=== PATIENT | female | born 1935 | race Caucasian/White ===

== ENCOUNTER 2020-08-20 12:34 | Inpatient (IN) ==
[2020-08-20 13:18] LABS: ABS Basophils 0.1 10^3/ul (0-0.2); ABS Eosinophils 0.3 10^3/ul (0-0.6); ABS Lymphocytes 1.1 10^3/ul (1.0-4.8); ABS Monocytes 0.9 10^3/ul (0-0.8); Eosinophil % 3.8 %; Hematocrit 39 % (35-47); Hemoglobin 12.7 g/dL (12.0-16.0); Lymphocyte % 14.9 %; Mean Corpuscular HGB Conc 33 g/dL (31-36); Mean Corpuscular Hemoglobin 30 pg (27-31); Mean Corpuscular Volume 90 fL (80-97); Mean Platelet Volume 8.6 fL (7.4-10.4); Platelet Count 365 10^3/uL (150-450); Red Blood Count 4.31 10^6 /uL (3.70-4.87); Red Cell Distribution Width 17 % (10-15); White Blood Count 7.3 10^3/uL (3.5-10.8)
[2020-08-20 13:25] LABS: INR 1.42 (0.82-1.09)
[2020-08-20 13:37] LABS: ALT 17 U/L (7-52); AST 26 U/L (13-39); Albumin 3.2 g/dL (3.2-5.2); Alkaline Phosphatase 409 U/L (34-104); Anion Gap 10 mmol/L (2-11); BUN/Creatinine Ratio 22.4 (8-20); Blood Urea Nitrogen 66 mg/dL (6-24); CO2 Carbon Dioxide 27 mmol/L (22-32); Calcium 8.3 mg/dL (8.6-10.3); Chloride 105 mmol/L (101-111); EGFR African American 18.3 (>60); EGFR Non-African American 15.1 (>60); Globulin 3.1 g/dL (2-4); Potassium 3.1 mmol/L (3.5-5.0); Sodium 142 mmol/L (135-145); Total Protein 6.3 g/dL (6.4-8.9)
[2020-08-20 13:39] LABS: Glucose 48 mg/dL (70-100)
[2020-08-20 13:40] LABS: Troponin I 0.05 ng/mL (<0.03)
[2020-08-20 16:24] LABS: Troponin I 0.05 ng/mL (<0.03)
[2020-08-20] MEDS ORDERED: Potassium Chloride LIQUID 20 MEQ/15 ML LIQUID PO ONE (17:04)
[2020-08-20] MEDS ORDERED: Furosemide 40 mg/4 ml IV VIAL IV ONE (17:22)
[2020-08-20 17:44] LABS: Glucose 41 mg/dL (70-100)
[2020-08-20 17:46] LABS: Magnesium 1.5 mg/dL (1.9-2.7)
[2020-08-20] MEDS ORDERED: Magnesium Sulfate IV 3 GM in NS 0.9% 100 ml BAG 100 ML IVPB ONE (17:49)
[2020-08-20] MEDS ORDERED: Dextrose 50% Syringe 50 ml 25 GM/50 ML SYRINGE IV PUSH PRN (18:07)
[2020-08-20 19:12] LABS: Troponin I 0.05 ng/mL (<0.03)
[2020-08-20 21:01] LABS: Potassium 3.2 mmol/L (3.5-5.0)
[2020-08-20] MEDS: Heparin 5000 UNITS/ML 1 mL VIAL SUBCUT SCH (21:35)
[2020-08-21] MEDS ORDERED: Dextrose 50% Syringe 50 ml 25 GM/50 ML SYRINGE IV PUSH PRN (00:10)
[2020-08-21] MEDS: KCL 10 MEQ/50 ML IVPREMIX 10 MEQ/50 ML BAG IV SCH ×2 (01:14→03:59)
[2020-08-21] MEDS ORDERED: KCL 10 MEQ/50 ML IVPREMIX 10 MEQ/50 ML BAG IV SCH (03:00)
[2020-08-21] MEDS: Heparin 5000 UNITS/ML 1 mL VIAL SUBCUT SCH ×3 (05:50→20:46)
[2020-08-21] MEDS: Furosemide 40 mg/4 ml IV VIAL IV SCH ×2 (05:50→07:59)
[2020-08-21 07:41] LABS: ABS Eosinophils 0.4 10^3/ul (0-0.6); ABS Monocytes 0.6 10^3/ul (0-0.8); ABS Neutrophils 5.5 10^3/ul (1.5-7.7); Eosinophil % 4.8 %; Hematocrit 42 % (35-47); Hemoglobin 13.4 g/dL (12.0-16.0); Lymphocyte % 13.5 %; Mean Corpuscular HGB Conc 32 g/dL (31-36); Mean Corpuscular Hemoglobin 29 pg (27-31); Mean Corpuscular Volume 92 fL (80-97); Mean Platelet Volume 8.9 fL (7.4-10.4); Nucleated Red Blood Cells % 0.1; Platelet Count 370 10^3/uL (150-450); Red Blood Count 4.54 10^6 /uL (3.70-4.87); Red Cell Distribution Width 18 % (10-15); White Blood Count 7.5 10^3/uL (3.5-10.8)
[2020-08-21 07:51] LABS: Albumin 3.3 g/dL (3.2-5.2); BUN/Creatinine Ratio 22.6 (8-20); Calcium 8.4 mg/dL (8.6-10.3); EGFR African American 18.8 (>60); EGFR Non-African American 15.6 (>60); Globulin 3.4 g/dL (2-4); Magnesium 2.2 mg/dL (1.9-2.7); Potassium 4.1 mmol/L (3.5-5.0); Total Bilirubin 1.3 mg/dL (0.2-1.0); Total Protein 6.7 g/dL (6.4-8.9)
[2020-08-21] MEDS: Aspirin EC 81 mg TAB.EC (enteric coated) PO SCH (08:17)
[2020-08-21] MEDS: Nystatin TOP POWDER 15 GM BTL TOPICAL SCH ×3 (09:30→20:59)
[2020-08-21] MEDS ORDERED: Bumetanide IV 0.25 MG/ML 4 ml VIAL (1 mg) SLOW PUSH ONE (17:37)
[2020-08-21] MEDS ORDERED: Bumetanide IV 10 MG in Premix IV 0 ML IV ONE (20:00)
[2020-08-21] MEDS: Calcium Polycarbophil 625mg TB PO SCH (20:46)
[2020-08-21] MEDS: Insulin GLARGINE 100 un/ml 10 ml VIAL SUBCUT SCH (20:47)
[2020-08-21] MEDS ORDERED: Furosemide 40 mg/4 ml IV VIAL IV SCH (21:00)
[2020-08-22 05:04] LABS: Calcium 8.7 mg/dL (8.6-10.3)
[2020-08-22 05:07] LABS: Potassium 4.2 mmol/L (3.5-5.0)
[2020-08-22 05:10] LABS: BUN/Creatinine Ratio 24.7 (8-20); EGFR African American 19.5 (>60); EGFR Non-African American 16.1 (>60)
[2020-08-22] MEDS: Heparin 5000 UNITS/ML 1 mL VIAL SUBCUT SCH ×3 (06:08→22:24)
[2020-08-22] MEDS: Nystatin TOP POWDER 15 GM BTL TOPICAL SCH ×3 (08:00→22:24)
[2020-08-22] MEDS: Calcium Polycarbophil 625mg TB PO SCH ×2 (09:52→22:24)
[2020-08-22] MEDS: Aspirin EC 81 mg TAB.EC (enteric coated) PO SCH (09:55)
[2020-08-22] MEDS: Bumetanide IV 10 MG in Premix IV 0 ML IV SCH ×2 (11:34→23:55)
[2020-08-22 21:24] LABS: Magnesium 2.1 mg/dL (1.9-2.7)
[2020-08-22] MEDS: Insulin GLARGINE 100 un/ml 10 ml VIAL SUBCUT SCH (22:24)
[2020-08-22 23:12] LABS: Calcium 8.1 mg/dL (8.6-10.3)
[2020-08-22 23:17] LABS: BUN/Creatinine Ratio 26.4 (8-20); EGFR African American 22.1 (>60); EGFR Non-African American 18.3 (>60)
[2020-08-22 23:30] LABS: Potassium 3.6 mmol/L (3.5-5.0)
[2020-08-23 06:59] LABS: Calcium 8.8 mg/dL (8.6-10.3); Potassium 3.5 mmol/L (3.5-5.0)
[2020-08-23 07:05] LABS: BUN/Creatinine Ratio 24.8 (8-20); EGFR African American 19.9 (>60); EGFR Non-African American 16.4 (>60)
[2020-08-23] MEDS: Heparin 5000 UNITS/ML 1 mL VIAL SUBCUT SCH ×3 (07:35→22:01)
[2020-08-23] MEDS ORDERED: KCL 20 MEQ/100 ML IVPREMIX 20 MEQ/100 ML BAG IV ONE (07:40)
[2020-08-23] MEDS: Bumetanide IV 10 MG in Premix IV 0 ML IV SCH ×3 (08:17→22:00)
[2020-08-23] MEDS ORDERED: Potassium Chlor 20 meq TAB.ER PO ONE (08:22)
[2020-08-23] MEDS: Calcium Polycarbophil 625mg TB PO SCH ×2 (08:56→22:00)
[2020-08-23] MEDS: Aspirin EC 81 mg TAB.EC (enteric coated) PO SCH (08:57)
[2020-08-23] MEDS: Nystatin TOP POWDER 15 GM BTL TOPICAL SCH ×3 (08:57→23:05)
[2020-08-23] MEDS ORDERED: Potassium Chloride LIQUID 20 MEQ/15 ML LIQUID PO ONE (09:00)
[2020-08-23] MEDS: Insulin GLARGINE 100 un/ml 10 ml VIAL SUBCUT SCH (22:01)
[2020-08-24] MEDS: Heparin 5000 UNITS/ML 1 mL VIAL SUBCUT SCH ×3 (04:59→21:20)
[2020-08-24] MEDS: Bumetanide IV 10 MG in Premix IV 0 ML IV SCH ×2 (04:59→12:21)
[2020-08-24 07:39] LABS: BUN/Creatinine Ratio 26.1 (8-20); Calcium 8.7 mg/dL (8.6-10.3); EGFR African American 20.4 (>60); EGFR Non-African American 16.9 (>60); Magnesium 1.7 mg/dL (1.9-2.7); Potassium 4.1 mmol/L (3.5-5.0)
[2020-08-24] MEDS ORDERED: Magnesium Sulfate IV 3 GM in NS 0.9% 100 ml BAG 100 ML IVPB ONE (08:30)
[2020-08-24] MEDS: Calcium Polycarbophil 625mg TB PO SCH ×2 (09:02→21:20)
[2020-08-24] MEDS: Aspirin EC 81 mg TAB.EC (enteric coated) PO SCH (09:03)
[2020-08-24] MEDS: Nystatin TOP POWDER 15 GM BTL TOPICAL SCH ×3 (09:04→21:20)
[2020-08-24] MEDS ORDERED: Insulin GLARGINE 100 un/ml 10 ml VIAL SUBCUT SCH (21:00)
[2020-08-25] MEDS: Bumetanide IV 10 MG in Premix IV 0 ML IV SCH ×3 (00:28→18:35)
[2020-08-25] MEDS ORDERED: Hemorrhoidal OINT 1 TUBE PR PRN (01:32)
[2020-08-25] MEDS: Heparin 5000 UNITS/ML 1 mL VIAL SUBCUT SCH ×3 (06:52→21:28)
[2020-08-25] MEDS: Aspirin EC 81 mg TAB.EC (enteric coated) PO SCH (09:55)
[2020-08-25] MEDS: Calcium Polycarbophil 625mg TB PO SCH ×2 (09:56→21:28)
[2020-08-25] MEDS: Nystatin TOP POWDER 15 GM BTL TOPICAL SCH ×3 (09:57→21:31)
[2020-08-25 15:02] LABS: BUN/Creatinine Ratio 27.4 (8-20); Calcium 8.7 mg/dL (8.6-10.3); EGFR African American 20.8 (>60); EGFR Non-African American 17.2 (>60); Potassium 3.6 mmol/L (3.5-5.0)
[2020-08-25] MEDS ORDERED: Insulin GLARGINE 100 un/ml 10 ml VIAL SUBCUT SCH (21:00)
[2020-08-26] MEDS: Bumetanide IV 10 MG in Premix IV 0 ML IV SCH ×2 (02:57→15:18)
[2020-08-26 05:32] LABS: BUN/Creatinine Ratio 28.2 (8-20); Calcium 9.2 mg/dL (8.6-10.3); EGFR African American 20.6 (>60); Magnesium 1.9 mg/dL (1.9-2.7); Potassium 3.8 mmol/L (3.5-5.0)
[2020-08-26] MEDS: Heparin 5000 UNITS/ML 1 mL VIAL SUBCUT SCH ×3 (06:31→21:44)
[2020-08-26] MEDS: Calcium Polycarbophil 625mg TB PO SCH ×2 (08:59→20:12)
[2020-08-26] MEDS: Aspirin EC 81 mg TAB.EC (enteric coated) PO SCH (09:01)
[2020-08-26] MEDS: Nystatin TOP POWDER 15 GM BTL TOPICAL SCH ×3 (09:05→20:11)
[2020-08-26 11:14] LABS: Albumin/Globulin Ratio 0.8 (1-3); Globulin 3.6 g/dL (2-4); Indirect Bilirubin 0.9 mg/dL (0.3-1.0); Total Bilirubin 1.3 mg/dL (0.2-1.0); Total Protein 6.6 g/dL (6.4-8.9)
[2020-08-26] MEDS: Insulin GLARGINE 100 un/ml 10 ml VIAL SUBCUT SCH (20:06)
[2020-08-27] MEDS: Bumetanide IV 10 MG in Premix IV 0 ML IV SCH ×2 (00:01→10:38)
[2020-08-27 05:10] LABS: BUN/Creatinine Ratio 28.8 (8-20); Calcium 9.3 mg/dL (8.6-10.3); EGFR African American 20.7 (>60); EGFR Non-African American 17.1 (>60); Magnesium 1.7 mg/dL (1.9-2.7); Potassium 4.3 mmol/L (3.5-5.0)
[2020-08-27] MEDS: Heparin 5000 UNITS/ML 1 mL VIAL SUBCUT SCH ×3 (05:35→20:35)
[2020-08-27] MEDS ORDERED: Magnesium Sulfate 2 gm BAG 2 GM/50 ML BAG IVPB ONE (06:59)
[2020-08-27] MEDS: Aspirin EC 81 mg TAB.EC (enteric coated) PO SCH (08:14)
[2020-08-27] MEDS: Calcium Polycarbophil 625mg TB PO SCH ×2 (08:15→19:55)
[2020-08-27] MEDS: Nystatin TOP POWDER 15 GM BTL TOPICAL SCH ×3 (08:31→19:56)
[2020-08-27] MEDS: Insulin GLARGINE 100 un/ml 10 ml VIAL SUBCUT SCH (20:34)
[2020-08-28] MEDS: Bumetanide IV 10 MG in Premix IV 0 ML IV SCH ×3 (00:04→20:48)
[2020-08-28] MEDS: Heparin 5000 UNITS/ML 1 mL VIAL SUBCUT SCH ×3 (05:30→20:17)
[2020-08-28 06:17] LABS: BUN/Creatinine Ratio 27.5 (8-20); Calcium 9.3 mg/dL (8.6-10.3); EGFR African American 20.3 (>60); EGFR Non-African American 16.8 (>60); Magnesium 2.2 mg/dL (1.9-2.7); Potassium 4.1 mmol/L (3.5-5.0)
[2020-08-28] MEDS: Aspirin EC 81 mg TAB.EC (enteric coated) PO SCH (09:16)
[2020-08-28] MEDS: Calcium Polycarbophil 625mg TB PO SCH ×2 (09:17→20:17)
[2020-08-28] MEDS: Nystatin TOP POWDER 15 GM BTL TOPICAL SCH ×3 (09:22→20:17)
[2020-08-28] MEDS: Insulin GLARGINE 100 un/ml 10 ml VIAL SUBCUT SCH (20:17)
[2020-08-29] MEDS: Heparin 5000 UNITS/ML 1 mL VIAL SUBCUT SCH ×3 (05:45→21:17)
[2020-08-29 06:24] LABS: BUN/Creatinine Ratio 28.8 (8-20); Calcium 9.6 mg/dL (8.6-10.3); EGFR African American 19.3 (>60); Potassium 4.4 mmol/L (3.5-5.0)
[2020-08-29] MEDS: Bumetanide IV 10 MG in Premix IV 0 ML IV SCH (09:54)
[2020-08-29] MEDS: Calcium Polycarbophil 625mg TB PO SCH ×2 (09:56→21:17)
[2020-08-29] MEDS: Aspirin EC 81 mg TAB.EC (enteric coated) PO SCH (09:56)
[2020-08-29] MEDS: Nystatin TOP POWDER 15 GM BTL TOPICAL SCH ×3 (10:03→21:17)
[2020-08-29] MEDS ORDERED: Magnesium Hydroxide LIQ 30 ML UDC PO PRN (14:11)
[2020-08-29] MEDS: Insulin GLARGINE 100 un/ml 10 ml VIAL SUBCUT SCH (21:18)
[2020-08-30 05:02] LABS: BUN/Creatinine Ratio 31.7 (8-20); Calcium 9.4 mg/dL (8.6-10.3); EGFR African American 18.8 (>60); EGFR Non-African American 15.6 (>60); Magnesium 1.9 mg/dL (1.9-2.7); Potassium 4.1 mmol/L (3.5-5.0)
[2020-08-30] MEDS: Heparin 5000 UNITS/ML 1 mL VIAL SUBCUT SCH ×3 (05:58→21:25)
[2020-08-30] MEDS ORDERED: Magnesium Sulfate 2 gm BAG 2 GM/50 ML BAG IVPB ONE (06:29)
[2020-08-30] MEDS: Calcium Polycarbophil 625mg TB PO SCH ×2 (10:01→21:26)
[2020-08-30] MEDS: Aspirin EC 81 mg TAB.EC (enteric coated) PO SCH (10:02)
[2020-08-30] MEDS: Nystatin TOP POWDER 15 GM BTL TOPICAL SCH ×3 (10:09→21:33)
[2020-08-30] MEDS: Bumetanide IV 0.25 MG/ML 4 ml VIAL (1 mg) SLOW PUSH SCH (21:24)
[2020-08-30] MEDS: Insulin GLARGINE 100 un/ml 10 ml VIAL SUBCUT SCH (21:26)
[2020-08-31 06:32] LABS: BUN/Creatinine Ratio 30.3 (8-20); Calcium 9.6 mg/dL (8.6-10.3); EGFR African American 16.8 (>60); EGFR Non-African American 13.9 (>60); Potassium 4.6 mmol/L (3.5-5.0)
[2020-08-31] MEDS: Heparin 5000 UNITS/ML 1 mL VIAL SUBCUT SCH ×2 (07:22→14:20)
[2020-08-31] MEDS: Bumetanide IV 0.25 MG/ML 4 ml VIAL (1 mg) SLOW PUSH SCH (08:36)
[2020-08-31] MEDS: Calcium Polycarbophil 625mg TB PO SCH (08:37)
[2020-08-31] MEDS: Aspirin EC 81 mg TAB.EC (enteric coated) PO SCH (08:38)
[2020-08-31] MEDS: Nystatin TOP POWDER 15 GM BTL TOPICAL SCH ×2 (08:39→14:20)
[2020-08-31 16:17] VITALS: BP 105/46
[2020-09-03 13:03] LABS: TB1 Ag minus Nil Result -0.01 IU/mL
[2020-09-03 13:04] LABS: QuantiferonTb Gold Plus Result Negative (Negative)
== END 2020-08-31 16:30 | disposition home or self-care (01) | DRG 291 ==
LOC: ED 12:34 → MEDTELE 16:55
PROVIDERS: ADMIT Internal Medicine; ATTEND Internal Medicine

== ENCOUNTER 2022-01-03 20:35 | Inpatient (IN) ==
[2022-01-03 21:30] LABS: ABS Basophils 0.1 10^3/ul (0-0.2); ABS Lymphocytes 0.3 10^3/ul (1.0-4.8); ABS Monocytes 0.9 10^3/ul (0-0.8); ABS Neutrophils 19.3 10^3/ul (1.5-7.7); Hematocrit 38 % (35-47); Hemoglobin 12.4 g/dL (12.0-16.0); Lymphocyte % 1.4 %; Mean Corpuscular HGB Conc 33 g/dL (31-36); Mean Corpuscular Hemoglobin 33 pg (27-31); Mean Corpuscular Volume 100 fL (80-97); Mean Platelet Volume 8.2 fL (7.4-10.4); Nucleated Red Blood Cells % 0.1; Platelet Count 279 10^3/uL (150-450); Red Cell Distribution Width 18 % (10-15); White Blood Count 20.5 10^3/uL (3.5-10.8)
[2022-01-03 21:56] LABS: Albumin 3.3 g/dL (3.2-5.2); Calcium 9.1 mg/dL (8.6-10.3); Globulin 3.2 g/dL (2-4); Total Bilirubin 1.7 mg/dL (0.2-1.0); Total Protein 6.5 g/dL (6.4-8.9)
[2022-01-03 22:00] LABS: Potassium 3.6 mmol/L (3.5-5.0)
[2022-01-03 22:41] LABS: INR 1.33 (0.89-1.11)
[2022-01-03 22:58] LABS: High Sensitivity Troponin 1 Hr 181 pg/mL (<15)
[2022-01-04] MEDS ORDERED: Furosemide 20 mg/2 ml IV VIAL IV SLOW PU ONE
[2022-01-04] MEDS ORDERED: Nitro 2% OINT (Nitroglycerin) 1 INCH/PAK TOPICAL ONE (00:01)
[2022-01-04 02:29] LABS: Urine Appearance Turbid; Urine Blood 3+ (Large) (Negative); Urine Color Yellow; Urine Ketones Negative (Negative); Urine Protein 3+ (>=300 mg/dL) (Negative); Urine Specific Gravity 1.025 (1.005-1.030); Urine Urobilinogen 0.2 (Negative) (Negative); Urine pH 6.5 (5.0-9.0)
[2022-01-04 02:30] LABS: Urine Bilirubin 1+ (Small) (Negative); Urine Glucose Negative (Negative); Urine Nitrite Negative (Negative)
[2022-01-04 02:42] LABS: Urine Bacteria 3+ (Absent); Urine Red Blood Cell 3+(>10/hpf) (Absent); Urine White Blood Cell 3+(>20/hpf) (Absent)
[2022-01-04] MEDS ORDERED: Furosemide 100 mg/10 ml IV VIAL IV ONE ×2 (02:58→06:04)
[2022-01-04] MEDS ORDERED: Furosemide 40 mg/4 ml IV VIAL IV ONE (03:15)
[2022-01-04] MEDS ORDERED: cefTRIAXone 1 gm/50 mL D5W 1 GM/50 ML BAG IV ONE (05:03)
[2022-01-04] MEDS ORDERED: FUROSEMIDE IV ONE (06:30)
[2022-01-04] MEDS ORDERED: NS 0.9% IV ONE (06:30)
[2022-01-04 07:46] LABS: Calcium 9.1 mg/dL (8.6-10.3); Potassium 4.5 mmol/L (3.5-5.0); eGFR CKD-EPI 16.2 (>60)
[2022-01-04] MEDS ORDERED: Cefepime 2 GM in Dextrose 2 GM/50 ML BAG IV ONE (08:25)
[2022-01-04 09:33] LABS: Direct Bilirubin 0.5 mg/dL (0.03-0.18); Indirect Bilirubin 0.7 mg/dL (0.3-1.0); Total Bilirubin 1.2 mg/dL (0.2-1.0)
[2022-01-04] MEDS ORDERED: Vancomycin 1,000 MG in NS 0.9% 250 ml 250 ML IVPB ONE (10:00)
[2022-01-04] MEDS ORDERED: Vancomycin per Pharmacy 1 EA NOTE FOLLOW UP SCH (10:00)
[2022-01-04] MEDS ORDERED: Dextrose 50% Syringe 50 ml 25 GM/50 ML SYRINGE IV PUSH PRN ×2 (14:30→17:47)
[2022-01-04 17:40] LABS: Glucose Confirmatory 428 mg/dL (70-100)
[2022-01-04 19:22] LABS: Glucose Confirmatory 485 mg/dL (70-100)
[2022-01-04] MEDS ORDERED: Insulin GLARGINE 100 un/ml 10 ml VIAL SUBCUT SCH (21:00)
[2022-01-04] MEDS: Heparin 5000 UNITS/ML 1 mL VIAL SUBCUT SCH (21:10)
[2022-01-05 06:19] LABS: ABS Lymphocytes 0.9 10^3/ul (1.0-4.8); ABS Neutrophils 9.1 10^3/ul (1.5-7.7); Eosinophil % 0.4 %; Hematocrit 37 % (35-47); Hemoglobin 12.4 g/dL (12.0-16.0); Mean Corpuscular HGB Conc 34 g/dL (31-36); Mean Corpuscular Hemoglobin 33 pg (27-31); Mean Corpuscular Volume 100 fL (80-97); Mean Platelet Volume 8.3 fL (7.4-10.4); Nucleated Red Blood Cells % 0.1; Platelet Count 253 10^3/uL (150-450); Red Blood Count 3.72 10^6 /uL (3.70-4.87); Red Cell Distribution Width 19 % (10-15)
[2022-01-05 06:43] LABS: Calcium 9.1 mg/dL (8.6-10.3); Potassium 3.8 mmol/L (3.5-5.0); eGFR CKD-EPI 11.3 (>60)
[2022-01-05] MEDS: Aspirin EC 81 mg TAB.EC (enteric coated) PO SCH (08:12)
[2022-01-05] MEDS: Heparin 5000 UNITS/ML 1 mL VIAL SUBCUT SCH ×2 (08:12→21:21)
[2022-01-05] MEDS: cefTRIAXone 1 gm/50 mL D5W 1 GM/50 ML BAG IV SCH (08:26)
[2022-01-05 09:18] LABS: C Reactive Protein 170.76 mg/L (<8.01)
[2022-01-05] MEDS ORDERED: Magnesium Hydroxide LIQ 30 ML UDC PO PRN (10:40)
[2022-01-05] MEDS ORDERED: Insulin GLARGINE 100 un/ml 10 ml VIAL SUBCUT SCH (21:00)
[2022-01-06] MEDS ORDERED: Hemorrhoidal OINT 1 TUBE PR PRN (03:56)
[2022-01-06] MEDS ORDERED: Vancomycin Random Level NOTE FOLLOW UP ONE (06:00)
[2022-01-06 06:05] LABS: ABS Eosinophils 0.2 10^3/ul (0-0.6); ABS Lymphocytes 1.2 10^3/ul (1.0-4.8); ABS Monocytes 1.3 10^3/ul (0-0.8); ABS Neutrophils 8.7 10^3/ul (1.5-7.7); Eosinophil % 2.1 %; Hematocrit 39 % (35-47); Lymphocyte % 10.2 %; Mean Corpuscular HGB Conc 33 g/dL (31-36); Mean Corpuscular Hemoglobin 33 pg (27-31); Mean Corpuscular Volume 99 fL (80-97); Mean Platelet Volume 8.6 fL (7.4-10.4); Nucleated Red Blood Cells % 0.2; Platelet Count 282 10^3/uL (150-450); Red Blood Count 3.95 10^6 /uL (3.70-4.87); Red Cell Distribution Width 19 % (10-15); White Blood Count 11.4 10^3/uL (3.5-10.8)
[2022-01-06 06:30] LABS: Albumin 2.8 g/dL (3.2-5.2); Calcium 9.2 mg/dL (8.6-10.3); Globulin 2.9 g/dL (2-4); Potassium 3.9 mmol/L (3.5-5.0); Total Bilirubin 0.9 mg/dL (0.2-1.0); Total Protein 5.7 g/dL (6.4-8.9); eGFR CKD-EPI 8.7 (>60)
[2022-01-06] MEDS: cefTRIAXone 1 gm/50 mL D5W 1 GM/50 ML BAG IV SCH (07:53)
[2022-01-06] MEDS: Aspirin EC 81 mg TAB.EC (enteric coated) PO SCH (08:03)
[2022-01-06] MEDS: Heparin 5000 UNITS/ML 1 mL VIAL SUBCUT SCH (08:04)
[2022-01-06] MEDS: Heparin 1,000 UNIT/ML 10 ml (10,000 UNITS) CATHLAB/DIALYSIS DIALYSIS ONE ×6 (09:45→14:30)
[2022-01-06 10:13] LABS: Hepatitis B Surface Antigen Nonreactive (Nonreactive)
[2022-01-06 10:18] LABS: Hepatitis B Core IgM Nonreactive (Nonreactive)
[2022-01-06 10:30] LABS: Hepatitis B Surface Ab Not Immune (Immune)
[2022-01-06 15:09] VITALS: BP 101/46
== END 2022-01-06 15:55 | disposition home or self-care (01) | DRG 871 ==
LOC: ED 20:35 → SUATTDRO 01-04 09:03 → EDHOLD 01-04 09:03 → MED 01-04 11:04
PROVIDERS: ADMIT Internal Medicine; ATTEND Hospitalist

== ENCOUNTER 2023-06-16 14:57 | Inpatient (IN) ==
[2023-06-16 16:26] LABS: Hematocrit 36.5 % (35-45); Hemoglobin 12.2 g/dL (11.5-14.3); Mean Corpuscular Hemoglobin 35.5 pg (27-33); Mean Corpuscular Hgb Conc 33.5 g/dL (31-36); Mean Corpuscular Volume 105.9 fL (80-97); Mean Platelet Volume 8.7 fL (7.5-11.2); Platelet Count 304 10^3/uL (150-450); Red Blood Count 3.45 10^6/uL (3.63-4.92); Red Cell Distribution Width 17.1 % (12-17); White Blood Count 8.3 10^3/uL (3.8-11.8)
[2023-06-16 16:40] LABS: Albumin 3.8 g/dL (3.2-5.2); Albumin/Globulin Ratio 1.1 (1-3); C Reactive Protein 64.13 mg/L (<8.01); Calcium 9.4 mg/dL (8.6-10.3); Creatinine, Serum 3.52 mg/dL (0.51-0.95); Globulin 3.6 g/dL (2-4); Potassium 3.9 mmol/L (3.5-5.0); Total Bilirubin 0.9 mg/dL (0.2-1.0); Total Protein 7.4 g/dL (6.4-8.9); eGFR CKD-EPI 11.9 (>60)
[2023-06-16 17:01] LABS: ABS Basophils 0.1 10^3/uL (0.0-0.1); ABS Eosinophils 0.2 10^3/uL (0.0-0.5); ABS Lymphocytes 0.7 10^3/uL (1.0-4.8); ABS Monocytes 0.9 10^3/uL (0.0-0.9); ABS Neutrophils 6.6 10^3/uL (1.5-7.6); Anisocytosis 1+; Macrocytosis 1+
[2023-06-16] MEDS ORDERED: Dextrose 50% Syringe 50 ml 25 GM/50 ML SYRINGE IV PUSH PRN ×2 (18:29→21:10)
[2023-06-16] MEDS ORDERED: Magnesium Hydroxide LIQ 30 ML UDC PO PRN (20:58)
[2023-06-16] MEDS ORDERED: NF: Estradiol VAG CM (NF) 1 APPLIC TUBE VAGINAL SCH (21:00)
[2023-06-16] MEDS: Heparin 5000 UNITS/ML 1 mL VIAL SUBCUT SCH (22:12)
[2023-06-17 02:57] LABS: Activated Partial Thrombo Time 36.5 seconds (26.0-38.0); INR 1.29 (0.83-1.13)
[2023-06-17] MEDS ORDERED: Dextrose 50% Syringe 50 ml 25 GM/50 ML SYRINGE IV PUSH PRN ×3 (03:22→17:39)
[2023-06-17] MEDS ORDERED: Triamcinolone 0.025% OINT 15 GM TUBE TOPICAL PRN (04:27)
[2023-06-17] MEDS: Heparin 5000 UNITS/ML 1 mL VIAL SUBCUT SCH ×3 (05:59→22:05)
[2023-06-17 07:52] LABS: ABS Lymphocytes 0.5 10^3/uL (1.0-4.8); ABS Monocytes 0.2 10^3/uL (0.0-0.9); ABS Neutrophils 5.3 10^3/uL (1.5-7.6); Eosinophil % 0.2 %; Hematocrit 36.4 % (35-45); Hemoglobin 12.2 g/dL (11.5-14.3); Lymphocyte % 8.8 %; Mean Corpuscular Hemoglobin 35.8 pg (27-33); Mean Corpuscular Hgb Conc 33.4 g/dL (31-36); Nucleated Red Blood Cells % 0.1 %/100WBC (0.0-0.8); Platelet Count 296 10^3/uL (150-450); Red Blood Count 3.41 10^6/uL (3.63-4.92); Red Cell Distribution Width 17.2 % (12-17)
[2023-06-17 08:05] LABS: Calcium 9.2 mg/dL (8.6-10.3); Creatinine, Serum 4.54 mg/dL (0.51-0.95); Potassium 4.7 mmol/L (3.5-5.0); eGFR CKD-EPI 8.8 (>60)
[2023-06-17] MEDS ORDERED: Insulin GLARGINE 100 un/ml 10 ml VIAL SUBCUT SCH (09:00)
[2023-06-17] MEDS: Aspirin EC 81 mg TAB.EC (enteric coated) PO SCH (10:28)
[2023-06-17] MEDS: Polyethylene Glycol 3350 17 GM PACKET PO SCH (10:30)
[2023-06-17] MEDS: [UNRECOGNIZED DRUG - OTHER] PO SCH (10:31)
[2023-06-17] MEDS ORDERED: NS 0.9% 1000 ml BAG 100 ML IV PRN (10:36)
[2023-06-17] MEDS ORDERED: Heparin 1,000 UNIT/ML 10 ml (10,000 UNITS) CATHLAB/DIALYSIS DIALYSIS PRN (10:36)
[2023-06-17] MEDS ORDERED: Albumin Human 25% 25 GM/100 ML BTL IV PRN (10:36)
[2023-06-17] MEDS ORDERED: NS 0.9% 1000 ml BAG 200 ML IV PRN (10:36)
[2023-06-17 15:33] LABS: Hepatitis B Surface Ab Not Immune (Immune)
[2023-06-17 17:58] LABS: Hepatitis B Surface Antigen Nonreactive (Nonreactive)
[2023-06-17] MEDS ORDERED: Lidocaine PATCH 4% TOPICAL ONE (20:48)
[2023-06-18 03:53] LABS: Urine Appearance Turbid; Urine Bilirubin Negative (Negative); Urine Blood 2+ (Negative); Urine Color Amber; Urine Glucose 1+(50 mg/dL) (Negative); Urine Ketones Negative (Negative); Urine Nitrite Negative (Negative); Urine Protein 3+(>=500 mg/dL) (Negative); Urine Specific Gravity 1.015 (1.002-1.030); Urine Urobilinogen Negative (Negative)
[2023-06-18 04:33] LABS: Urine Bacteria 1+ (Absent); Urine Red Blood Cell 2+(6-10/hpf) (Absent); Urine Squamous Epithelial Cell Present (Absent); Urine White Blood Cell 3+(>20/hpf) (Absent)
[2023-06-18] MEDS: Heparin 5000 UNITS/ML 1 mL VIAL SUBCUT SCH (05:40)
[2023-06-18 07:53] LABS: ABS Eosinophils 0.1 10^3/uL (0.0-0.5); ABS Lymphocytes 1.6 10^3/uL (1.0-4.8); ABS Monocytes 1.1 10^3/uL (0.0-0.9); ABS Neutrophils 7.4 10^3/uL (1.5-7.6); Eosinophil % 0.5 %; Hematocrit 37.2 % (35-45); Hemoglobin 12.3 g/dL (11.5-14.3); Lymphocyte % 15.6 %; Mean Corpuscular Volume 106.1 fL (80-97); Mean Platelet Volume 8.4 fL (7.5-11.2); Platelet Count 325 10^3/uL (150-450); Red Blood Count 3.51 10^6/uL (3.63-4.92); Red Cell Distribution Width 16.4 % (12-17); White Blood Count 10.2 10^3/uL (3.8-11.8)
[2023-06-18 09:00] LABS: Calcium 9.4 mg/dL (8.6-10.3); Creatinine, Serum 5.34 mg/dL (0.51-0.95); Potassium 4.8 mmol/L (3.5-5.0); eGFR CKD-EPI 7.2 (>60)
[2023-06-18] MEDS ORDERED: Insulin GLARGINE 100 un/ml 10 ml VIAL SUBCUT SCH (09:00)
[2023-06-18] MEDS: Polyethylene Glycol 3350 17 GM PACKET PO SCH (10:28)
[2023-06-18] MEDS: [UNRECOGNIZED DRUG - OTHER] PO SCH (10:28)
[2023-06-18] MEDS: Aspirin EC 81 mg TAB.EC (enteric coated) PO SCH (11:08)
[2023-06-18 14:30] VITALS: BP 102/52
== END 2023-06-18 15:30 | disposition home or self-care (01) | DRG 177 ==
LOC: ED 14:57 → EDHOLD 19:16 → SUATTDRO 19:16 → MEDTELE 06-17 03:12
PROVIDERS: ADMIT Student in an Organized Health Care Education/Training Program; ATTEND Hospitalist